=== PATIENT | female | born 1990 | race Caucasian/White ===

== ENCOUNTER 2022-06-15 15:36 | Emergency (ER) | payer OTHER, SELFPAY ==
--- NOTE | 2022-06-15 16:10 | EXP.UTC ---
Discharge Plan Disposition Patient Disposition: Home, Self-Care Condition: Good Prescriptions Prescriptions: New amoxicillin 875 mg tablet 875 mg PO BID 10 Days Qty: 20 0RF No Action pantoprazole 40 mg tablet,delayed release (DR/EC) 40 mg PO DAILY Label Comments: TAKE ONE TABLET BY MOUTH ONCE A DAY Referrals Follow up/Referrals: Jennifer Garnett PA [Primary Care Provider] - See instructions Activity Restrictions/Add. Instructions Additional Instructions/Restrictions: Take medication as prescribed. Increase fluids and rest. Use Flonase daily. Follow up with PCP if symptoms persist or worsen. Clinical Impressions Clinical Impression: Otitis media Discharge ED Provider: Taylor Roy [facility] HPI General Stated complaint: earache,cough,CHAUDHRY Time Seen by Provider: 06/15/22 16:11 History of Present Illness Provider Complaint: Pt relates that her right ear started hurting a couple of days ago and then yesterday she states she would become dizzy with head movement. She further relates that her throat has been scratching and feel like she has drainage going down the back of her throat. She denies taking anything for her symptoms. Related Data Home Medications Medication Instructions Recorded Confirmed pantoprazole 40 mg tablet,delayed 40 mg PO DAILY GERD 06/15/22 06/15/22 release Previous Rx's Medication Instructions Recorded amoxicillin 875 mg tablet 875 mg PO BID 10 days #20 tabs 06/15/22 Allergies Allergy/AdvReac Type Severity Reaction Status Date / Time No Known Allergies Allergy Verified 06/15/22 16:26 [facility] Medical History (Updated 06/15/22 @ 16:52 by Taylor Roy APRN) History of gastroesophageal reflux (GERD) Migraine Surgical History (Updated 06/15/22 @ 16:26 by Vilma Novak RN) History of section Social History (Updated 06/15/22 @ 16:26 by Vilma Novak RN) Smoking Status: Current every day smoker alcohol intake: current current occupational status: other Travel in the last 8 weeks: None ROS Obtained: Yes All systems reviewed & no additional complaints except as documented Constitutional Constitutional: Reports system reviewed and no additional complaints, except as documented ENT Ears, Nose, Mouth, and Throat: Reports dizziness, Reports otalgia and Reports post nasal drip Cardiovascular Cardiovascular: Reports system reviewed and no additional complaints, except as documented Respiratory Respiratory: Reports system reviewed and no additional complaints, except as documented and Reports cough Comments: reports occasional dry cough Gastrointestinal Gastrointestingal: Reports system reviewed and no additional complaints, except as documented Musculoskeletal Musculoskeletal: Reports system reviewed and no additional complaints, except as documented Integumentary/Breasts Skin/Breast: Reports system reviewed and no additional complaints, except as documented Neurologic Neurologic: Reports dizziness Physical Exam General General appearance: alert and in no apparent distress Head Head exam: atraumatic Eye Eye exam: Present normal appearance ENT ENT exam: Present other Expanded ENT Exam External ear exam: Present normal external inspection TM/Canal exam: Right TM: erythema and bulging and Bilateral TM: effusion Nasal speculum exam: Bilateral: normal Mouth exam: Present normal external inspection Teeth exam: Present normal inspection Throat exam: Present other Comment: post nasal drainage Neck Neck exam: Present normal inspection Chest Chest inspection: Present symmetric chest wall rise Respiratory Respiratory exam: Present normal lung sounds bilaterally; Absent respiratory distress Cardiovascular Cardiovascular exam: Present regular rate and normal rhythm Abdominal Exam Abdominal exam: Present soft Neurological Exam Neurological exam: Present alert and oriented X3 Skin Skin exam: Present warm,
[2022-06-15 16:15] VITALS: BP 144/71; PULSE 91; RESP 18; TEMP 36.9; O2SAT 99; BMI 37.3
[2022-06-15 16:54] VITALS: BP 144/71; PULSE 91; RESP 18; TEMP 36.9; O2SAT 99
== END 2022-06-15 17:05 | disposition home or self-care (01) ==
PROVIDERS: Emergency Provider Nurse Practitioner Family; PCP Physician Assistant
DX: H66.91 Otitis media, unspecified, right ear (principal)
CPT/HCPCS: 99212; G0463

== ENCOUNTER → 2022-09-27 15:50 | Outpatient (CLI) | payer OTHER, SELFPAY ==
[2022-09-27 16:56] LABS: Basophils % 0.4 % (0.1-2.0); Eosinophils # 0.1 K/mm3 (0.0-0.4); Eosinophils % 1.4 % (0.1-12.0); Hematocrit 39.8 % (37.0-47.0); Lymphocytes # 2.3 K/mm3 (0.7-4.5); Lymphocytes % 22.4 % (10-50); Mean Corpuscular HGB Conc 32.8 g/dL (31.8-35.4); Mean Corpuscular Hemoglobin 29.7 pg (27.0-31.2); Mean Corpuscular Volume 90.6 fl (81-99); Mean Platelet Volume 8.4 fl (7.4-10.4); Monocytes # 0.4 K/mm3 (0.1-1.0); Monocytes % 3.3 % (1.7-9.3); Neutrophils # 7.6 K/mm3 (1.8-7.8); Neutrophils % 72.5 % (37.0-80.0); Platelet Count 306 K/mm3 (142-424); Red Blood Count 4.39 M/mm3 (4.20-5.40); Red Cell Distribution Width 13.3 % (11.5-17.5); White Blood Count 10.5 K/mm3 (4.8-10.8)
[2022-09-29 11:41] LABS: Rapid Plasma Reagin Ab Titer Non Reactive (NonRea<1:1); Rubella Antibodies, IgG 3.22 index (Immune >0.99)
[2022-10-14 20:26] LABS: HIV Screen 4th Generation wRfx NON REACTIVE; Hepatitis B Surface Antigen NEGATIVE; Hepatitis C Antibody <0.1
== END ==
LOC: LAB 15:52
PROVIDERS: PCP Physician Assistant; Visit Provider Obstetrics & Gynecology
DX: Z34.90 Encounter for supervision of normal pregnancy, unspecified, unspecified trimester (principal)
CPT/HCPCS: 36415; 85025; 86592; 86703; 86762; 86850; 87340; 87380; G0432

== ENCOUNTER → 2022-12-25 14:06 | Outpatient (CLI) | payer OTHER, SELFPAY ==
--- NOTE | 2022-12-25 14:16 | US_ITS ---
FINAL REPORT CLINICAL HISTORY: 20 week anatomy scan FINDINGS: The exam is technically difficult secondary to maternal obesity. There is a single live intrauterine gestation. Presentation is cephalic. The cervix is closed and measures 4.3 cm. Placenta is posterior, grade 1. movement is noted. Cardiac activity is measured at 135 beats per minute. Three-vessel cord with satisfactory umbilical cord insertion. Four-chamber heart is noted. brain and ventricles are unremarkable. Chest and diaphragm are unremarkable. ABDOMEN: Both kidneys are unremarkable. Stomach is unremarkable. SPINE: No anomalies identified. Both arms and legs noted. AMNIOTIC FLUID: Appropriate amount. MEASUREMENTS: ULTRASOUND AGE: 22 weeks 2 days. GESTATION AGE: 23 weeks 0 days. ESTIMATED WEIGHT: 495 g GROWTH PERCENTILE: 16% LMP percentile BPD: 5.3 cm corresponding with 22 weeks 1 days. OFD: 7.0 cm corresponding with 22 weeks 5 days. HC: 19.6 cm corresponding with 21 weeks 6 days. AC: 17.3 cm corresponding with 22 weeks 2 days. FL: 3.9 cm corresponding with 22 weeks 5 days. CEREBELLUM: 2.4 cm corresponding with 23 weeks 5 days. HUMERUS: 3.7 cm corresponding with 22 weeks 6 days. HC/AC: 1.13 CI: 75% FL/BPD: 74% FL/AC: 23% IMPRESSION: Single living IUP with an ultrasound age of 22 weeks 2 days. No gross anomalies noted. Reviewed, Interpreted and Dictated by Nhan Solares III, MD Transcribed by Rosie Martinez Authenticated and . [facility]
== END ==
PROVIDERS: PCP Physician Assistant; Visit Provider Obstetrics & Gynecology
DX: Z34.90 Encounter for supervision of normal pregnancy, unspecified, unspecified trimester (principal); Z3A.20 20 weeks gestation of pregnancy
CPT/HCPCS: 76811

== ENCOUNTER → 2023-02-07 12:38 | Outpatient (CLI) | payer OTHER, SELFPAY ==
[2023-02-07 13:13] LABS: Glucose,Fasting 86 mg/dl (74-100)
[2023-02-07 15:36] LABS: Glucose 1 Hour 141 mg/dL (74-100)
== END ==
PROVIDERS: PCP Physician Assistant; Visit Provider Obstetrics & Gynecology
DX: Z34.90 Encounter for supervision of normal pregnancy, unspecified, unspecified trimester (principal); Z3A.29 29 weeks gestation of pregnancy
CPT/HCPCS: 36415; 82951

== ENCOUNTER → 2023-02-21 08:55 | Outpatient (CLI) | payer OTHER, SELFPAY ==
[2023-02-21 10:32] LABS: Basophils % 0.2 % (0.1-2.0); Eosinophils # 0.1 K/mm3 (0.0-0.4); Eosinophils % 1.2 % (0.1-12.0); Hemoglobin 11.3 g/dL (12.2-16.2); Lymphocytes # 2.6 K/mm3 (0.7-4.5); Lymphocytes % 27.1 % (10-50); Mean Corpuscular HGB Conc 33.1 g/dL (31.8-35.4); Mean Corpuscular Hemoglobin 30.2 pg (27.0-31.2); Mean Corpuscular Volume 91.1 fl (81-99); Mean Platelet Volume 9.7 fl (7.4-10.4); Monocytes # 0.5 K/mm3 (0.1-1.0); Monocytes % 5.6 % (1.7-9.3); Neutrophils # 6.3 K/mm3 (1.8-7.8); Neutrophils % 65.9 % (37.0-80.0); Platelet Count 293 K/mm3 (142-424); Red Blood Count 3.73 M/mm3 (4.20-5.40); Red Cell Distribution Width 12.8 % (11.5-17.5); White Blood Count 9.5 K/mm3 (4.8-10.8)
[2023-02-21 10:52] LABS: Alanine Aminotransferase 29 U/L (12-78); Albumin Level 3.4 g/dl (3.5-5.0); Alkaline Phosphatase 109 U/L (38-126); Aspartate Amino Transferase 37 U/L (14-36); Bilirubin,Indirect 0.3 mg/dL (0.0-0.9); Bilirubin,Total 0.3 mg/dl (0.2-1.3); Bilirubin,Unconjugated 0.4 mg/dL (0.0-1.1); Blood Urea Nitrogen 9 mg/dl (7-17); Calcium 8.9 mg/dl (8.4-10.2); Carbon Dioxide 24 mmol/L (22.0-30.0); Chloride 97 mmol/L (98-107); Chol/HDL Ratio 4.5 (1-3.5); Cholesterol 288 mg/dl (140-200); Estimated Glomerular Filt Rate 184 ml/min (>60); GFR (African American) 222 ML/MIN (>60); Glucose 89 mg/dl (74-100); HDL Cholesterol 64 mg/dl (40-60); Sodium 134 mmol/L (136-145); Total Protein,Serum 6.1 g/dl (6.3-8.2); Triglycerides 328 mg/dl (30-150); VLDL Cholesterol 66 mg/dL (0-40)
[2023-02-21 11:03] LABS: Direct LDL Cholesterol 153.03 mg/dL (100-129)
[2023-02-21 11:09] LABS: Free T4 (Free Thyroxine) 0.65 ng/dl (0.78-2.19)
[2023-02-21 11:24] LABS: Thyroid Stimulating Hormone 1.88 uIU/mL (0.465-4.68)
== END ==
LOC: LAB 08:56
PROVIDERS: PCP Physician Assistant; Visit Provider Nurse Practitioner
DX: R06.00 Dyspnea, unspecified (principal); R07.89 Other chest pain; R00.0 Tachycardia, unspecified; I34.0 Nonrheumatic mitral (valve) insufficiency; I11.9 Hypertensive heart disease without heart failure; R94.31 Abnormal electrocardiogram [ECG] [EKG]; E11.9 Type 2 diabetes mellitus without complications; I63.9 Cerebral infarction, unspecified
CPT/HCPCS: 36415; 80048; 80061; 80076; 84439; 84443; 85025; 93270

== ENCOUNTER 2023-03-06 20:09 | Observation (INO) | payer OTHER, SELFPAY ==
[2023-03-06 16:42] VITALS: BMI 40.5
[2023-03-06 18:08] VITALS: BP 133/85; PULSE 95; RESP 16; TEMP 36.5; O2SAT 98; BMI 40.5
[2023-03-06 18:24] LABS: Microscopic, Urine URINE MICROSCOPIC (MICROSCOPIC)
[2023-03-06 18:28] LABS: Basophils % 0.3 % (0.1-2.0); Eosinophils # 0.1 K/mm3 (0.0-0.4); Eosinophils % 0.8 % (0.1-12.0); Hematocrit 33.9 % (37.0-47.0); Lymphocytes # 2.4 K/mm3 (0.7-4.5); Lymphocytes % 24.2 % (10-50); Mean Corpuscular HGB Conc 32.5 g/dL (31.8-35.4); Mean Corpuscular Hemoglobin 29.2 pg (27.0-31.2); Mean Corpuscular Volume 89.7 fl (81-99); Mean Platelet Volume 8.8 fl (7.4-10.4); Monocytes # 0.4 K/mm3 (0.1-1.0); Monocytes % 4.4 % (1.7-9.3); Neutrophils # 6.8 K/mm3 (1.8-7.8); Neutrophils % 70.3 % (37.0-80.0); Platelet Count 259 K/mm3 (142-424); Red Blood Count 3.78 M/mm3 (4.20-5.40); Red Cell Distribution Width 12.8 % (11.5-17.5); White Blood Count 9.7 K/mm3 (4.8-10.8)
[2023-03-06 18:38] LABS: Alanine Aminotransferase 27 U/L (12-78); Anion Gap 15.8 mEq/L (5-15); Aspartate Amino Transferase 36 U/L (14-36); Blood Urea Nitrogen 5 mg/dl (7-17); Calcium 8.9 mg/dl (8.4-10.2); Carbon Dioxide 22 mmol/L (22.0-30.0); Chloride 101 mmol/L (98-107); Creatinine Clearance Estimated 338 mL/min (50-200); Estimated Glomerular Filt Rate 184 ml/min (>60); GFR (African American) 222 ML/MIN (>60); Glucose 72 mg/dl (74-100); Potassium 3.8 mmoL/L (3.5-5.1); Sodium 135 mmol/L (136-145); Uric Acid 3.5 mg/dl (2.5-6.2)
[2023-03-06 18:42] LABS: Appearance,Urine CLEAR (Clear); Bilirubin,Urine Negative (Negative); Blood, Urine Negative (Negative); Color,Urine YELLOW (Yellow); Glucose,Urine (UA) Negative (Negative); Ketones,Urine 1+ (Negative); Leukocyte Esterase,Urine Negative (Negative); Nitrate,Urine Negative (Negative); PH,Urine 5.5 (5.0-8.5); Protein,Urine Negative (Negative); Urobilinogen,Urine 0.2 EU/dl (0.2)
[2023-03-06 18:42] LABS: Fibrinogen 504 mg/dL (229.9-363.5); INR 0.88 (0.9-1.1); Prothrombin Time 9.6 seconds (10.1-12.5)
[2023-03-06 18:49] LABS: WBC,Urine Occasional #/hpf (0-3)
[2023-03-06 18:51] LABS: D-Dimer 1.83 ug/mL (0.0-0.5)
[2023-03-06 18:54] LABS: Amphetamine/Metha Screen,Urine Negative ng/ml (<1000); Benzodiazepines Screen,Urine Negative ng/ml (<200)
[2023-03-06 18:55] LABS: Barbiturates Screen,Urine Negative ng/ml (<200)
[2023-03-06 18:56] LABS: Cannabinoid Screen,Urine Negative ng/ml (<50); Methadone Screen,Urine Negative ng/ml (<300)
[2023-03-06 18:57] LABS: Cocaine Screen,Urine Negative ng/ml (<300); Phencyclidine Screen,Urine Negative ng/ml (<25)
[2023-03-06 18:58] LABS: Opiate Screen,Urine Negative ng/ml (<300)
[2023-03-06 20:48] LABS: Coronavirus 19, PCR Not Detected (NotDetected); Influenza A, PCR Not Detected (NotDetected); Influenza B, PCR Not Detected (NotDetected)
[2023-03-07 03:44] VITALS: BP 138/76; PULSE 93; RESP 18; TEMP 36.7; O2SAT 97
[2023-03-07 08:00] VITALS: BP 135/70; PULSE 82; RESP 18; TEMP 36.6; O2SAT 100
--- NOTE | 2023-03-07 08:11 | HMH.PHAINT1 ---
Pharmacy Intervention Comments: MEDICATION RECONCILIATION COMPLETED ON PATIENT USING EXTERNAL FILL HISTORY FROM PHARMACY. -LEXI JANG, KEYANNAD
--- NOTE | 2023-03-07 10:46 | EXP.HPDC ---
General Admission date:: 03/06/23 Discharge date: 03/07/23 *Admission Date: 03/06/23 *Chief complaint: hypertension *History of present illness: 32 yo Admitted for observation at 33 10/19 after routine appointment in office with elevated BP 150s/100s BP was significantly lower in OB triage 130-140/70-80, but she was having regular painful contractions on the tocometer Cervical exam was and she was admitted for hydration, tocolysis and monitoring [facility] Disclaimer: The information contained in this section may have been updated after the patient was seen, as this information can be updated by other users. Medical History History of gastroesophageal reflux (GERD) Migraine Surgical History History of section Family History Other Stroke Social History Smoking Status: Current every day smoker alcohol intake: current current occupational status: employed Travel in the last 8 weeks: None Review of Systems Constitutional Constitutional: Reports system reviewed and no additional complaints, except as documented and Denies headache(s) ENT Ears, Nose, Mouth, and Throat: Denies headache(s) *Genitourinary Genitourinary: Denies abnormal vaginal bleeding Comments: + contractions *Neurologic Neurologic: Denies headache(s) and Denies other visual disturbances Exam Data for Last 24 hours Vital signs and Labs for Last 24 Hours: Temp Pulse Resp BP Pulse Ox 97.8 F 82 18 135/70 100 03/07/23 08:00 03/07/23 08:00 03/07/23 08:00 03/07/23 08:00 03/07/23 08:00 Laboratory Results - last 24 hr 03/06/23 18:09: Urine Color Yellow, Urine Appearance Clear, Urine pH 5.5, Ur Specific Hamilton 1.010, Urine Protein Negative, Urine Glucose (UA) Negative, Urine Ketones 1+, Urine Blood Negative, Urine Nitrate Negative, Urine Bilirubin Negative, Urine Urobilinogen 0.2, Ur Leukocyte Esterase Negative, Urine RBC None, Urine WBC Occasional, Ur Squamous Epith Cells 3-5, Urine Bacteria None 03/06/23 18:09: Urine Opiates Screen Negative, Urine Methadone Screen Negative, Ur Barbituates Screen Negative, Ur Phencyclidine Scrn Negative, Ur Amphetamines Screen Negative, U Benzodiazepines Scrn Negative, Urine Cocaine Screen Negative, U Marijuana (THC) Screen Negative 03/06/23 18:19: WBC 9.7, RBC 3.78 L, Hgb 11.0 L, Hct 33.9 L, MCV 89.7, MCH 29.2, MCHC 32.5, RDW 12.8, Plt Count 259, MPV 8.8, Neut % (Auto) 70.3, Lymph % (Auto) 24.2, Pope % (Auto) 4.4, Eos % (Auto) 0.8, Baso % (Auto) 0.3, Neut # (Auto) 6.8, Lymph # (Auto) 2.4, Pope # (Auto) 0.4, Eos # (Auto) 0.1, Baso # (Auto) 0.0 03/06/23 18:19: PT 9.6 L, INR 0.88 L, APTT 23.0, Fibrinogen 504 H 03/06/23 18:19: D-Dimer 1.83 H, Sodium 135 L, Potassium 3.8, Chloride 101, Carbon Dioxide 22, Anion Gap 15.8 H, BUN 5 L, Creatinine 0.40 L, Estimated Creat Clear 338 H, Estimated GFR 184, Est GFR ( Amer) 222, Glucose 72 L, Uric Acid 3.5, Calcium 8.9, AST 36, ALT 27 03/06/23 20:31: SARS-CoV-2 (PCR) Not detected, Influenza A Untype (PCR) Not detected, Influenza Type B (PCR) Not detected I & O for Last 24 hours: Intake & Output 03/04/23 03/05/23 03/06/23 03/07/23 11:59 11:59 11:59 11:59 Weight 236 lb Constitutional Constitutional: no acute distress *Routine HEENT Exam Head: Present normocephalic Eye: Absent conjunctival icterus or scleral injection ENT: Present mucous membranes moist *Routine Neck Exam Neck: Present supple *Routine Respiratory Exam Respiratory: Present CTA bilaterally; Absent respiratory distress *Routine Cardiovascular Exam Cardiovascular: Present RRR *Routine Abdominal Exam Abdominal: Present soft; Absent tenderness or distended *Routine Rectal Exam Rectal:: deferred *Routine Genitalia Exam Genitalia:: normal female
== END 2023-03-07 14:15 | disposition home or self-care (01) ==
LOC: OBOUT 20:11 → OB 20:11
PROVIDERS: Admitting Provider Obstetrics & Gynecology; PCP Physician Assistant; Visit Provider Obstetrics & Gynecology
DX: O60.03 Preterm labor without delivery, third trimester (principal); Z3A.33 33 weeks gestation of pregnancy; O16.4 Unspecified maternal hypertension, complicating childbirth; O99.214 Obesity complicating childbirth; O99.334 Smoking (tobacco) complicating childbirth
CPT/HCPCS: 36415; 59025; 80048; 80305; 81001; 84450; 84460; 84550; 85025; 85378; 85384; 85610; 85730; 87636; 96372; C9803; G0378; U0003; U0005

== ENCOUNTER → 2023-03-11 12:32 | Outpatient (CLI) | payer OTHER, SELFPAY ==
[2023-03-17 10:14] LABS: Albumin, U 29.4; Alpha-1-Globulin, U 7.3; Alpha-2-Globulin, U 23.7; Beta Globulin, U 26.3; Gamma Globulin, U 13.2; M-Spike, % NOT OBSERVED; M-Spike, mg/24 hr NOT OBSERVED; Prot,24hr calculated 458; Protein,Total,Urine 30.5
== END ==
PROVIDERS: PCP Physician Assistant; Visit Provider Obstetrics & Gynecology
DX: Z34.90 Encounter for supervision of normal pregnancy, unspecified, unspecified trimester (principal); Z3A.33 33 weeks gestation of pregnancy
CPT/HCPCS: 84156; 84166

== ENCOUNTER → 2023-03-14 15:50 | Outpatient (CLI) | payer OTHER, SELFPAY ==
--- NOTE | 2023-03-14 15:51 | US_ITS ---
PROCEDURE: US OB BIOPHYSICAL PROFILE CLINICAL INDICATION: hypertension affecting , LGA TECHNIQUE: Multiple images were obtained of the uterus. Technically difficult exam due to the patient's body habitus. FINDINGS: The following parameters are obtained: From her established due date she is 34 weeks and 2 days. Average ultrasound age is Average 34weeks 2days Estimated due date by ultrasound is 04/23/2023. Estimated weight is 2,647g 5 pounds 13 ounces, 75th percentile. BPD: 8.33 cm-33weeks 4days OFD: 10.8 cm -33weeks 4days HC: 30.3cm-33 weeks 5 days AC: 33.7cm-37 weeks 5 days FL: 6.1cm-31 weeks 6 days . HC/AC: 0.9 Cephalic index: 0.77 FL/BPD: 0.73 FL/AC: 0.18 heart rate: 139bpm bpm Amniotic fluid index: 24.14cm Qualitative AFV: 2 breathing movements: 2 Gross body movements: 2 Tone: 2 Biophysical profile score: 8 Doppler evaluation of the umbilical artery: SD ratio: 2.38 Resistive index: 0.58 No obvious anomalies evident. Placenta: Posterior grade 2 Cervix: 3.4 centimeters IMPRESSION: 1. Viable fetus in the cephalic presentation with a posterior placenta grade 2. 2. The growth is 75th percentile. 3. The abdominal circumference shows accelerated growth and is 3 weeks ahead. 4. The femur length measures 2 weeks behind and this may erroneously reflect a lower weight and percentile than the fetus actually weighs. 5. The amniotic fluid index is increased and measures 24.14 centimeters. 6. Biophysical profile is 8/8 with good breathing movement seen. 7. SD ratio is normal at 2.38. Dictated by: Herber Fernández MD 03/15/2023 12:30 Herber Fernández MD in OV 03/15/2023 12:30
== END ==
LOC: RAD 15:51
PROVIDERS: PCP Obstetrics & Gynecology; Visit Provider Obstetrics & Gynecology
DX: O16.9 Unspecified maternal hypertension, unspecified trimester (principal); O36.60X0 Maternal care for excessive fetal growth, unspecified trimester, not applicable or unspecified
CPT/HCPCS: 76811; 76819; 76820

== ENCOUNTER 2023-03-24 16:48 | Emergency (ER) | payer OTHER, SELFPAY ==
--- NOTE | 2023-03-24 16:39 | ECG_ITS ---
APPROVED REPORT Exam: Resting ECG HR:103 bpm ECG Measurements Heart Rate 103 AXES ME 129 P 47 QRSd 92 QRS 53 QT 324 T -4 QTc 384 Conclusion SINUS TACHYCARDIA MINIMAL ST DEPRESSION [0.025+ mV ST DEPRESSION] ABNORMAL RHYTHM ECG INTERPRETATION BASED ON A DEFAULT AGE OF 40 YEARS UNCONFIRMED REPORT Electronically signed by : Kyree Carreon MD 03/25/2023 20:08:21
[2023-03-24 16:50] VITALS: BP 161/85; PULSE 102; RESP 20; TEMP 37; O2SAT 99; BMI 41.5
--- NOTE | 2023-03-24 16:59 | PC.NURSE ---
FHT'S 146-155 WTIH DOPPLER, PT REPORTS +FM
--- NOTE | 2023-03-24 17:07 | PC.NURSE ---
PT ASSISTED TO BR, NO NEEDS AT THIS TIME
--- NOTE | 2023-03-24 17:25 | PC.NURSE ---
rounded on pt, pt. has no complaints at this time.
[2023-03-24 17:30] VITALS: BP 134/95; PULSE 90; RESP 22; O2SAT 97
[2023-03-24 17:35] LABS: Basophils % 0.3 % (0.1-2.0); Eosinophils # 0.1 K/mm3 (0.0-0.4); Eosinophils % 0.6 % (0.1-12.0); Hematocrit 32.4 % (37.0-47.0); Hemoglobin 10.5 g/dL (12.2-16.2); Lymphocytes # 2.3 K/mm3 (0.7-4.5); Lymphocytes % 22.6 % (10-50); Mean Corpuscular HGB Conc 32.4 g/dL (31.8-35.4); Mean Corpuscular Hemoglobin 28.5 pg (27.0-31.2); Mean Corpuscular Volume 87.8 fl (81-99); Mean Platelet Volume 8.6 fl (7.4-10.4); Monocytes # 0.5 K/mm3 (0.1-1.0); Monocytes % 4.5 % (1.7-9.3); Neutrophils # 7.4 K/mm3 (1.8-7.8); Platelet Count 270 K/mm3 (142-424); Red Blood Count 3.69 M/mm3 (4.20-5.40); Red Cell Distribution Width 13.4 % (11.5-17.5); White Blood Count 10.3 K/mm3 (4.8-10.8)
[2023-03-24 17:37] LABS: Chloride 102 mmol/L (98-107); Potassium 3.9 mmoL/L (3.5-5.1); Sodium 135 mmol/L (136-145)
[2023-03-24 17:40] LABS: Alanine Aminotransferase 39 U/L (12-78); Albumin Level 3.6 g/dl (3.5-5.0); Albumin/Globulin Ratio 1.1 (1.1-1.8); Alkaline Phosphatase 144 U/L (38-126); Anion Gap 12.9 mEq/L (5-15); Aspartate Amino Transferase 45 U/L (14-36); Bilirubin,Total 0.2 mg/dl (0.2-1.3); Blood Urea Nitrogen 7 mg/dl (7-17); Carbon Dioxide 24 mmol/L (22.0-30.0); Creatinine Clearance Estimated 138 mL/min (50-200); Estimated Glomerular Filt Rate 142 ml/min (>60); GFR (African American) 172 ML/MIN (>60); Globulin 3.3 g/dL (1.3-3.2); Total Protein,Serum 6.9 g/dl (6.3-8.2)
[2023-03-24 17:41] LABS: Calcium 9.7 mg/dl (8.4-10.2); Glucose 77 mg/dl (74-100)
[2023-03-24 17:53] LABS: Troponin I < 0.01 ng/ml (0.00-0.034)
[2023-03-24 18:00] VITALS: BP 153/96; PULSE 90; RESP 24; O2SAT 97
--- NOTE | 2023-03-24 18:01 | PC.NURSE ---
ED MD AT BEDSIDE
[2023-03-24 18:30] VITALS: BP 151/89; PULSE 88; RESP 22; O2SAT 98
--- NOTE | 2023-03-24 19:04 | PC.NURSE ---
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
--- NOTE | 2023-03-24 19:09 | HMH.EDGENADL ---
Discharge Plan Disposition Patient Disposition: Xfer Other Condition: Fair Prescriptions Prescriptions: No Action prenat.vits,savannah,fmz-ileq-pyosa Tablet 1 tab PO DAILY ondansetron 8 mg tablet,disintegrating 8 mg PO Q12HP PRN (Reason: Nausea And Vomiting) omeprazole 20 mg capsule,delayed release(DR/EC) 20 mg PO DAILY nifedipine 10 mg Capsule 20 mg PO Q6H Qty: 160 0RF Referrals Follow up/Referrals: Jennifer Garnett PA [Primary Care Provider] - See instructions Clinical Impressions Clinical Impression: induced hypertension, Chest pain Discharge ED Provider: Dominick Lim General Adult HPI General Chief complaint: Chest Pain Stated complaint: CP Time Seen by Provider: 03/24/23 19:14 Mode of Arrival: Wheelchair Source of Information: Patient Limitations: No Limitations Description of Symptoms (Recalled from ER Triage Doc. by RN): PT 36 WEEKS GESTATION WITH C/O UPPER BACK PAIN, LEFT SIDED CHEST PAIN THAT RADIATES TO LEFT ARM, STARTED ABOUT 1500 TODAY. REPORTS PAIN CONSTANT. RECENT HX OF ELEVATED HR AND HAD ECHO SCHEDULED History of Present Illness HPI narrative: This is a 32-year-old female approximately 36 weeks who comes in with an episode of sharp left-sided chest pain that goes to her left shoulder and upper back that began at 1500 hrs. today. Patient also came in with elevated heart rate. Patient stated that she is scheduled to have an outpatient echo done in the near future. Patient denies shortness of breath nausea vomiting or diaphoresis. There is no upon arrival patient did have an elevated blood pressure. Patient denies any vaginal bleeding or discharge. Patient denies any lower abdominal cramping. Related Data Home Medications Medication Instructions Recorded Confirmed prenat.vits,savannah,fit-xrqn-ddvsk 1 tab PO DAILY Supplement 09/27/22 03/21/23 omeprazole 20 mg capsule,delayed 20 mg PO DAILY Acid reflux 03/07/23 03/21/23 release ondansetron 8 mg disintegrating 8 mg PO Q12HP PRN Nausea And 03/07/23 03/21/23 tablet Vomiting Previous Rx's Medication Instructions Recorded nifedipine 10 mg capsule 20 mg PO Q6H #160 caps 03/07/23 Allergies Allergy/AdvReac Type Severity Reaction Status Date / Time No Known Allergies Allergy Verified 03/21/23 10:42 [facility] Disclaimer: The information contained in this section may have been updated after the patient was seen, as this information can be updated by other users. Medical History (Updated 03/24/23 @ 19:13 by Dominick Lim MD) History of gastroesophageal reflux (GERD) History of placenta abruption Migraine contractions Surgical History History of section Family History Other Stroke Social History Smoking Status: Current every day smoker alcohol intake: current current occupational status: employed Travel in the last 8 weeks: None ROS Obtained: Yes All systems reviewed & no additional complaints except as documented Skin no rash or lesions HEENT no runny nose sore throat Pulmonary no cough or shortness of breath Cardiovascular see HPI GI no abdominal pain nausea or vomiting no dysuria pyuria hematuria Musculoskeletal no neck or back pain Endocrine no polydipsia polyuria or polyphasia Psych no SI or HI The rest of the systems were reviewed and found to be negative Physical Exam Narrative Physical exam: Skin: Warm and dry HEENT: Normocephalic atraumatic extract muscles are intact pupils are equal and reactive to light Neck: Supple nontender Lungs: Clear to auscultation Heart: Regular rate and rhythm Abdomen: NABS soft nontender Extremities: No clubbing cyanosis or edema Neurologic: No unilateral weakness or numbness Lymphatic: No cervical or inguinal adenopathy Musculoskeletal: No
--- NOTE | 2023-03-24 19:09 | PC.NURSE ---
REPORT GIVEN TO AKBAR KATHLEEN
--- NOTE | 2023-03-24 19:11 | PC.NURSE ---
TREAD BUILDER NOTIFIED FOR ADMISSION
--- NOTE | 2023-03-24 19:14 | PC.NURSE ---
COVID swab obtained and sent to lab
[2023-03-24 19:20] LABS: Coronavirus 19, PCR Not Detected (NotDetected); Influenza A, PCR Not Detected (NotDetected); Influenza B, PCR Not Detected (NotDetected)
[2023-03-24 19:25] VITALS: BP 147/87; PULSE 87; RESP 22; TEMP 37; O2SAT 98
[2023-03-24 19:56] LABS: Microscopic, Urine URINE MICROSCOPIC (MICROSCOPIC)
[2023-03-24 19:58] LABS: Appearance,Urine CLEAR (Clear); Bilirubin,Urine Negative (Negative); Blood, Urine Negative (Negative); Color,Urine YELLOW (Yellow); Glucose,Urine (UA) Negative (Negative); Ketones,Urine 1+ (Negative); Leukocyte Esterase,Urine Negative (Negative); Nitrate,Urine Negative (Negative); PH,Urine 6.5 (5.0-8.5); Protein,Urine Negative (Negative); Urobilinogen,Urine 0.2 EU/dl (0.2)
[2023-03-24 20:12] LABS: Bacteria,Urine 2+ /lpf
== END 2023-03-24 19:27 | disposition other institution (70) ==
PROVIDERS: Emergency Provider Emergency Medicine; PCP Physician Assistant
DX: O99.413 Diseases of the circulatory system complicating pregnancy, third trimester (principal); O13.3 Gestational [pregnancy-induced] hypertension without significant proteinuria, third trimester; R07.9 Chest pain, unspecified; O99.333 Smoking (tobacco) complicating pregnancy, third trimester; F17.200 Nicotine dependence, unspecified, uncomplicated; R00.0 Tachycardia, unspecified; Z3A.36 36 weeks gestation of pregnancy
CPT/HCPCS: 80053; 81001; 84484; 85025; 87086; 87636; 93005; 99285; C9803; U0003; U0005

== ENCOUNTER 2023-03-24 20:18 | Observation (INO) | payer OTHER, SELFPAY ==
[2023-03-24] VITALS (9 sets, daily range): BP systolic 120–164; BP diastolic 70–89; PULSE 92–105; RESP 19; O2SAT 100; BMI 41.1
[2023-03-24 20:28] LABS: Uric Acid 3.7 mg/dl (2.5-6.2)
[2023-03-24 20:30] LABS: Amphetamine/Metha Screen,Urine Negative ng/ml (<1000); Barbiturates Screen,Urine Negative ng/ml (<200)
[2023-03-24 20:31] LABS: Benzodiazepines Screen,Urine Negative ng/ml (<200)
[2023-03-24 20:32] LABS: Cannabinoid Screen,Urine Negative ng/ml (<50); Cocaine Screen,Urine Negative ng/ml (<300)
[2023-03-24 20:33] LABS: Methadone Screen,Urine Negative ng/ml (<300)
[2023-03-24 20:34] LABS: Opiate Screen,Urine Negative ng/ml (<300); Phencyclidine Screen,Urine Negative ng/ml (<25)
[2023-03-25] VITALS (15 sets, daily range): BP systolic 96–138; BP diastolic 54–91; PULSE 80–100; RESP 18; TEMP 36.5; O2SAT 99
--- NOTE | 2023-03-25 00:36 | ECG_ITS ---
APPROVED REPORT Exam: Resting ECG HR:86 bpm ECG Measurements Heart Rate 86 AXES TN 132 P 58 QRSd 90 QRS 72 QT 350 T 46 QTc 394 Conclusion SINUS RHYTHM NORMAL ECG UNCONFIRMED REPORT Electronically signed by : Kyree Carreon MD 03/25/2023 20:06:18
[2023-03-25 01:17] LABS: Troponin I < 0.01 ng/ml (0.00-0.034)
--- NOTE | 2023-03-25 08:01 | HMH.PHAINT1 ---
Pharmacy Intervention Comments: MEDICATION RECONCILIATION COMPLETED ON PATIENT USING EXTERNAL FILL HISTORY FROM PHARMACY. -LEXI JANG, KEYANNAD
--- NOTE | 2023-03-25 09:48 | EXP.HP ---
History of Present Illness *Admission Date: 03/24/23 *Reason for visit:: , chest pain, hypertension *History of present illness: She is a 32-year-old female approximately 36 weeks who comes in with an episode of sharp left-sided chest pain that goes to her left shoulder and upper back that began at 1500 hrs. today.? Patient also came in with elevated heart rate.? Patient stated that she is scheduled to have an outpatient echo done in the near future.? Patient denies shortness of breath nausea vomiting or diaphoresis.? In the emergency department the patient did have an elevated blood pressure.? Patient denies any vaginal bleeding or discharge.? Patient denies any lower abdominal cramping. [facility] Disclaimer: The information contained in this section may have been updated after the patient was seen, as this information can be updated by other users. Medical History (Updated 03/25/23 @ 09:51 by Herber Fernández MD) History of gastroesophageal reflux (GERD) History of placenta abruption Migraine contractions Surgical History History of section Family History Stroke Social History Smoking Status: Current every day smoker tobacco type: cigarettes packs per day: 1 years smoked: 15 alcohol intake: never current occupational status: employed Travel in the last 8 weeks: None do you feel safe at home: Yes victim of physical abuse: No victim of emotional abuse: No victim of sexual abuse: No Review of Systems Review of Systems Review of systems:: pertinent systems reviewed and negative unless documented below Meds Home Medications and Allergies Home Medications Medication Instructions Recorded Confirmed Type ondansetron 8 mg disintegrating 8 mg PO Q12HP PRN Nausea And 03/07/23 03/24/23 History tablet Vomiting nifedipine 10 mg capsule 20 mg PO Q6H Hypertension 03/24/23 03/24/23 History pantoprazole 40 mg tablet,delayed 40 mg PO DAILY Acid reflux 03/25/23 03/25/23 History release vits no.124-ferrous fum 1 tab PO DAILY Supplement 03/25/23 03/25/23 History 27 mg iron-folic acid 800 mcg tablet ( Vitamin) New Prescriptions to Start Prescriptions: Allergies Allergy/AdvReac Type Severity Reaction Status Date / Time No Known Allergies Allergy Verified 03/21/23 10:42 Exam Data for Last 24 hours Vital signs and Labs for Last 24 Hours: Temp Pulse Resp BP Pulse Ox 97.7 F 99 H 18 128/66 99 03/25/23 08:41 03/25/23 08:41 03/25/23 08:41 03/25/23 08:41 03/25/23 08:41 Laboratory Results - last 24 hr 03/24/23 17:20: Uric Acid 3.7 03/24/23 18:45: Urine Opiates Screen Negative, Urine Methadone Screen Negative, Ur Barbituates Screen Negative, Ur Phencyclidine Scrn Negative, Ur Amphetamines Screen Negative, U Benzodiazepines Scrn Negative, Urine Cocaine Screen Negative, U Marijuana (THC) Screen Negative 03/25/23 00:45: Troponin I < 0.01 I & O for Last 24 hours: Intake & Output 03/22/23 03/23/23 03/24/23 03/25/23 11:59 11:59 11:59 11:59 Weight 240 lb Constitutional Constitutional: no acute distress *Routine HEENT Exam Head: Present normocephalic Eye: Present EOMI and PERRL ENT: Present mucous membranes moist *Routine Neck Exam Neck: Present supple; Absent lymphadenopathy *Routine Respiratory Exam Respiratory: Present CTA bilaterally *Routine Cardiovascular Exam Cardiovascular: Present RRR *Routine Abdominal Exam Abdominal: Present soft and normoactive bowel sounds; Absent tenderness *Routine Rectal Exam Rectal:: deferred *Routine Genitalia Exam Genitalia:: deferred *Routine Extremities Exam Extremities: Absent cyanosis, clubbing or edema *Routine Skin Exam Skin: Present warm; Absent rash *Routine Neurological Exam Neurological: Present alert and oriented
--- NOTE | 2023-03-25 12:36 | EXP.DC.SUM ---
General Admission date:: 03/24/23 Discharge date: 03/25/23 HPI HPI HPI: She is a 32-year-old female approximately 36 weeks who comes in with an episode of sharp left-sided chest pain that goes to her left shoulder and upper back that began at 1500 hrs. today.? Patient also came in with elevated heart rate.? Patient stated that she is scheduled to have an outpatient echo done in the near future.? Patient denies shortness of breath nausea vomiting or diaphoresis.? In the emergency department the patient did have an elevated blood pressure.? Patient denies any vaginal bleeding or discharge.? Patient denies any lower abdominal cramping. Hospital Course Hospital Course Hospital Course: She was admitted overnight with slightly elevated blood pressure and during the night had chest pain that radiated through her back and left shoulder. EKG at the time was completely normal. She received a GI cocktail and this seemed to help with her discomfort. Her blood pressure has improved with bedrest and it is normal now. She had an echocardiogram that was normal with some small regurg of the tricuspid and mitral valve. This was told by the technologist. We are awaiting the final report. Blood work was all normal. She denies any shortness of breath. Her chest pain has improved and she has had no further severe episodes of chest pain. I have changed her nifedipine to 60 mg XL daily. She is taking labetalol 100 mg twice daily as well. We will restart her Protonix and she has received her first dose today. She will be discharged home this afternoon to follow-up with Dr. Polanco in approximately 3 days time. She will return if she has any further episodes of severe pain or discomfort. Exam Data for Last 24 hours Vital signs and Labs for Last 24 Hours: Temp Pulse Resp BP Pulse Ox 97.7 F 99 H 18 128/66 99 03/25/23 08:41 03/25/23 08:41 03/25/23 08:41 03/25/23 08:41 03/25/23 08:41 Laboratory Results - last 24 hr 03/24/23 17:20: Uric Acid 3.7 03/24/23 18:45: Urine Opiates Screen Negative, Urine Methadone Screen Negative, Ur Barbituates Screen Negative, Ur Phencyclidine Scrn Negative, Ur Amphetamines Screen Negative, U Benzodiazepines Scrn Negative, Urine Cocaine Screen Negative, U Marijuana (THC) Screen Negative 03/25/23 00:45: Troponin I < 0.01 I & O for Last 24 hours: Intake & Output 03/23/23 03/24/23 03/25/23 03/26/23 11:59 11:59 11:59 11:59 Weight 240 lb Constitutional Constitutional: no acute distress *Routine HEENT Exam Head: Present normocephalic *Routine Neck Exam Neck: Present supple *Routine Respiratory Exam Respiratory: Present normal respiratory effort and able to speak in complete sentences; Absent accessory muscle use or respiratory distress *Routine Cardiovascular Exam Cardiovascular: Present RRR *Routine Abdominal Exam Abdominal: Present soft; Absent tenderness or distended Comments: Gravid uterus Results Data Completed and Pending Labs on day of discharge: Labs from last 24 hours 03/25/23 03/24/23 03/24/23 00:45 18:45 17:20 Uric Acid 3.7 Troponin I < 0.01 Urine Opiates Screen Negative Urine Methadone Screen Negative Ur Barbituates Screen Negative Ur Phencyclidine Scrn Negative Ur Amphetamines Screen Negative U Benzodiazepines Scrn Negative Urine Cocaine Screen Negative U Marijuana (THC) Screen Negative DS: Diagnosis Discharge Diagnosis (1) induced hypertension: Status: Acute Code(s): O13.9 - Gestational [-induced] hypertension without significant proteinuria, unspecified trimester (2) Chest pain: Status: Acute Code(s): R07.9 - Chest pain, unspecified (3) Hypertension during in third trimester: Status: Acute Code(s): O16.3 - Unspecified maternal hypertension, third trimester (4) Esophageal spasm: Status: Acute Code(s): K22.4 - Dyskinesia of esophagus (
== END 2023-03-25 13:45 | disposition home or self-care (01) ==
LOC: OBOUT 20:21 → OB 20:21
PROVIDERS: Admitting Provider Nurse Practitioner Obstetrics & Gynecology; PCP Physician Assistant; Visit Provider Nurse Practitioner Obstetrics & Gynecology
DX: O13.3 Gestational [pregnancy-induced] hypertension without significant proteinuria, third trimester (principal); Z3A.36 36 weeks gestation of pregnancy; O99.215 Obesity complicating the puerperium; K22.4 Dyskinesia of esophagus; O99.334 Smoking (tobacco) complicating childbirth; F17.210 Nicotine dependence, cigarettes, uncomplicated; R07.89 Other chest pain; O26.893 Other specified pregnancy related conditions, third trimester
CPT/HCPCS: 36415; 59025; 80305; 84484; 84550; 93005; 93306; G0378

== ENCOUNTER → 2023-03-29 08:59 | Outpatient (CLI) | payer OTHER, SELFPAY | LOC: LAB.DROPOF 09:00 | PROVIDERS: Visit Provider Obstetrics & Gynecology | DX: Z34.93 Encounter for supervision of normal pregnancy, unspecified, third trimester (principal); Z3A.37 37 weeks gestation of pregnancy | CPT/HCPCS: 86403 ==

== ENCOUNTER 2023-04-03 05:00 | Inpatient (IN) | payer OTHER, SELFPAY ==
[2023-04-03] VITALS (19 sets, daily range): BP systolic 120–185; BP diastolic 56–108; PULSE 75–108; RESP 16–20; TEMP 36.6–37.1; O2SAT 97–100; BMI 39.6
[2023-04-03 06:00] LABS: Coronavirus 19, PCR Not Detected (NotDetected); Influenza A, PCR Not Detected (NotDetected); Influenza B, PCR Not Detected (NotDetected); Microscopic, Urine URINE MICROSCOPIC (MICROSCOPIC)
[2023-04-03 06:03] LABS: Basophils % 0.4 % (0.1-2.0); Eosinophils # 0.1 K/mm3 (0.0-0.4); Eosinophils % 0.8 % (0.1-12.0); Hematocrit 31.1 % (37.0-47.0); Hemoglobin 10.1 g/dL (12.2-16.2); Lymphocytes # 2.5 K/mm3 (0.7-4.5); Lymphocytes % 26.4 % (10-50); Mean Corpuscular HGB Conc 32.4 g/dL (31.8-35.4); Mean Corpuscular Hemoglobin 27.6 pg (27.0-31.2); Mean Corpuscular Volume 85.4 fl (81-99); Mean Platelet Volume 9.3 fl (7.4-10.4); Monocytes # 0.5 K/mm3 (0.1-1.0); Monocytes % 4.7 % (1.7-9.3); Neutrophils # 6.4 K/mm3 (1.8-7.8); Neutrophils % 67.8 % (37.0-80.0); Platelet Count 274 K/mm3 (142-424); Red Blood Count 3.65 M/mm3 (4.20-5.40); Red Cell Distribution Width 13.9 % (11.5-17.5); White Blood Count 9.5 K/mm3 (4.8-10.8)
[2023-04-03 06:16] LABS: Chloride 103 mmol/L (98-107)
[2023-04-03 06:17] LABS: Potassium 3.9 mmoL/L (3.5-5.1); Sodium 135 mmol/L (136-145)
[2023-04-03 06:19] LABS: Alanine Aminotransferase 47 U/L (12-78); Alkaline Phosphatase 158 U/L (38-126); Aspartate Amino Transferase 55 U/L (14-36); Bilirubin,Total 0.3 mg/dl (0.2-1.3); Blood Urea Nitrogen 8 mg/dl (7-17); Creatinine Clearance Estimated 265 mL/min (50-200); Estimated Glomerular Filt Rate 142 ml/min (>60); GFR (African American) 172 ML/MIN (>60)
[2023-04-03 06:20] LABS: Albumin Level 3.5 g/dl (3.5-5.0); Anion Gap 12.9 mEq/L (5-15); Calcium 9.1 mg/dl (8.4-10.2); Carbon Dioxide 23 mmol/L (22.0-30.0); Globulin 3.5 g/dL (1.3-3.2); Glucose 88 mg/dl (74-100)
[2023-04-03 06:21] LABS: Appearance,Urine CLEAR (Clear); Blood, Urine Negative (Negative); Color,Urine YELLOW (Yellow); Glucose,Urine (UA) Negative (Negative); Ketones,Urine Negative (Negative); Leukocyte Esterase,Urine TRACE (Negative); Nitrate,Urine Negative (Negative); PH,Urine 6.5 (5.0-8.5); Protein,Urine TRACE (Negative)
[2023-04-03 06:31] LABS: Amphetamine/Metha Screen,Urine Negative ng/ml (<1000)
[2023-04-03 06:32] LABS: Barbiturates Screen,Urine Negative ng/ml (<200)
[2023-04-03 06:33] LABS: Benzodiazepines Screen,Urine Negative ng/ml (<200); Cannabinoid Screen,Urine Negative ng/ml (<50)
[2023-04-03 06:34] LABS: Cocaine Screen,Urine Negative ng/ml (<300)
[2023-04-03 06:35] LABS: Methadone Screen,Urine Negative ng/ml (<300); Opiate Screen,Urine Negative ng/ml (<300)
[2023-04-03 06:36] LABS: Phencyclidine Screen,Urine Negative ng/ml (<25)
[2023-04-03 06:48] LABS: Bilirubin,Urine Negative (Negative)
--- NOTE | 2023-04-03 07:23 | P.PN_ITS ---
[facility] Disclaimer: The information contained in this section may have been updated after the patient was seen, as this information can be updated by other users. Medical History Dyspnea History of gastroesophageal reflux (GERD) History of placenta abruption Migraine contractions Surgical History History of section Family History Other Stroke Social History (Updated 04/03/23 @ 05:36 by Thi Oates RN) Smoking Status: Current every day smoker tobacco type: cigarettes packs per day: 1 years smoked: 15 alcohol intake: never substance use type: denies use current occupational status: employed Travel in the last 8 weeks: None do you feel safe at home: Yes victim of physical abuse: No victim of emotional abuse: No victim of sexual abuse: No [facility] Anesthesia Checklist Patient Identification Patient Identification: Arm Band Structural Data Admitted From: Home Planned Operative Procedure/s: Repeat C/S, BTL Consent for Planned Operative Procedure(s) Verified: Yes Verified Documents: Surgical Consent and History and Physical NPO Status Verified Time NPO: 00:00 Additional verifications Anesthesia Reactions: No Airway Assessment C-Spine Mobility Assessed: Yes TMJ Mobility Assessed: Yes Dentition: Good Dentition Neurological Assessment Level of Consciousness: Awake and Alert Anesthesia Plan Anesthesia Risk discussed: Yes Anesthesia Plan: Verified ASA Class: II Anesthesia Type: Spinal (with Bilateral TAP Block)
[2023-04-03 08:21] LABS: Cord Blood PH 7.38 (7.35-7.45)
--- NOTE | 2023-04-03 09:16 | P.PNANES_ITS ---
[facility] Anesthesia Record Part I Anesthesia Record I Intake, IV Amount: 1,200 Estimated blood loss (mL): 500 Urine output (mL): 100 Blood Products used (#): none Blood Pressure: 120/56 SaO2: 100 Pulse Rate: 78 Respiratory Rate: 16 Temperature: 98.8 F Patient is:: Drowsy and Stable Stable to PACU at:: 09:10
--- NOTE | 2023-04-03 09:45 | SUR.OPER ---
[id number], PH-7.38. MD AT BEDSIDE AND MADE AWARE OF RESULTS.
--- NOTE | 2023-04-03 09:55 | SUR.PHASEI ---
0939- detailed report called to wood fish in ob 0941- pt left in stable condition with wood fish in pt room. All vss, dressings cdi, fundus placement confirmed.
--- NOTE | 2023-04-03 09:59 | P.OP_ITS ---
Date of procedure: 04/03/23 Pre-op Diagnosis:: 1. 37 weeks gestational age 2. Mild Preeclampsia 3. Previous C Section 4. Undesired Fertility Post-op Diagnosis:: Same Procedure performed:: 1. Low Transverse C Section 2. Bilateral Tubal Ligation Surgeon:: Onelia Polanco MD [employer]):: Herber Fernández MD STAINED GLASS GLAZIER:: Ziggyjustyna Ambrose Anesthesia: spinal Estimated blood loss (mL): 500 Operative findings:: Vigorous, live born female infant in vertex presentation with single nuchal cord Mild vesico-uterine adhesions Grossly normal appearing uterus, ovaries and fallopian tubes Operative note:: The patient was taken to the OR and spinal was administered without difficulty. She was prepped and draped in normal sterile fashion. A pfannenstiel skin incision was made with the scalpel through the previous scar and carried down to the fascia with sharp dissection. The fascia was incised in the midline and sharply dissected off the rectus muscles. The muscles were in the midline and the peritoneum was entered sharply and extended bluntly. The Torres-O self retaining retractor was placed in the abdomen and a bladder flap was created. There were mild adhesions extending from the bladder to the lower uterine segment from a previous c section, but this dissection was completed without complication or injury to the bladder. The uterus was incised in the lower uterine segment in a transverse fashion and extended bluntly. Amniotomy was performed and clear fluid noted. The was delivered in controlled fashion, without complication or shoulder dystocia. A single nuchal cord was reduced after the head was delivered. The infant was vigorous at and handed to awaiting sole layer hand and nursing staff for evaluation after routine delayed cord clamping. Cord blood was collected and a cord segment was preserved. The placenta was manually extracted and noted to be intact; it was sent for pathology because of the preeclampsia diagnosis. The uterus was repaired with 0-vicryl in a running/locked fashion. A small defect was made in the broad ligament on the patient's left with cautery and 0- chromic suture was passed through the defect. The fallopian tube was ligated twice, with the intervening tube segment excised using scissors. This method of tubal ligation (BPS) was repeated on the right fallopian tube and both tubal segments were sent for pathology. The Torres retractor was removed from the abdomen and Amy was placed over the lower uterine segment in the area of adhesion dissection as an additional means of hemostasis. The peritoneum was closed with 2-0 vicryl in a running fashion. The fascia was closed with #1 vicryl in a running fashion. The subcutaneous fat was closed with 2-0 vicryl in an interrupted fashion. The skin was closed with bee. The patient tolerated the procedure well. EBL 500cc. Sponge, lap, needle and instrument counts were correct x 2. TAP block was placed by anesthesia following the procedure. She was taken to PACU awake and in stable condition. Condition: stable Disposition: PACU Specimens:: 1. Placenta 2. Bilateral fallopian tube segments Complications:: None
--- NOTE | 2023-04-03 10:33 | EXP.HP ---
History of Present Illness *Admission Date: 04/03/23 *Reason for visit:: delivery *History of present illness: 32 year old with SHIRA 04/23/23 care at [facility]-- Dr. Polanco Dating by LMP = 10 wk ultrasound complicated by labor at 32 weeks She was successfully tocolyzed and received prophylactic steroids Subsequent to this episode, she was managed with PO procardia for contractions but later diagnosed with preeclampsia testing has been reassuring and blood pressure has been stable She also had complaints of chest pain and shortness of breath, with a prior cardiac issue after covid infection Cardiology consult was obtained, with normal echo Event monitor showed SR PAC/PVC, non-sustained Final cardiology recommendation was for a 6 week follow up in their office, but no cardiac intervention needed at this time She has a history of a previous CS and is scheduled for repeat CS today She desires permanent sterilization and declines reversible methods of contraception [facility] Disclaimer: The information contained in this section may have been updated after the patient was seen, as this information can be updated by other users. Medical History (Updated 04/03/23 @ 11:03 by Onelia Polanco MD) Dyspnea History of gastroesophageal reflux (GERD) History of placenta abruption Migraine contractions Surgical History History of section Family History Other Stroke Social History (Updated 04/03/23 @ 07:24 by Ziggy Ambrose CRNA) Smoking Status: Current every day smoker tobacco type: cigarettes packs per day: 1 years smoked: 15 alcohol intake: never substance use type: denies use current occupational status: employed Travel in the last 8 weeks: None do you feel safe at home: Yes victim of physical abuse: No victim of emotional abuse: No victim of sexual abuse: No Review of Systems Constitutional Constitutional: Reports system reviewed and no additional complaints, except as documented and Denies headache(s) ENT Ears, Nose, Mouth, and Throat: Denies headache(s) *Cardiovascular Cardiovascular: Reports chest pain (intermittent) and Reports dyspnea on exertion (intermittent) *Respiratory Respiratory: Reports dyspnea on exertion (intermittent) *Genitourinary Genitourinary: Denies abnormal vaginal bleeding *Neurologic Neurologic: Denies headache(s) and Denies other visual disturbances Meds Home Medications and Allergies Home Medications Medication Instructions Recorded Confirmed Type vits no.124-ferrous fum 1 tab PO DAILY Supplement 03/25/23 04/03/23 History 27 mg iron-folic acid 800 mcg tablet ( Vitamin) pantoprazole 40 mg granules 40 mg PO DAILY Acid reflux 03/28/23 04/03/23 History delayed-release for susp in packet (Protonix) azithromycin 250 mg tablet 250 mg PO DAILY Infection 04/03/23 04/03/23 History labetalol 100 mg tablet 100 mg PO BID Hypertension 04/03/23 04/03/23 History nifedipine 60 mg tablet,extended 60 mg PO DAILY Contractions 04/03/23 04/03/23 History release 24 hr New Prescriptions to Start Prescriptions: Allergies Allergy/AdvReac Type Severity Reaction Status Date / Time No Known Allergies Allergy Verified 04/01/23 11:15 Exam Data for Last 24 hours Vital signs and Labs for Last 24 Hours: Temp Pulse Resp BP Pulse Ox 98.8 F 90 16 137/85 100 04/03/23 09:40 04/03/23 09:40 04/03/23 09:40 04/03/23 09:40 04/03/23 09:40 Laboratory Results - last 24 hr 04/03/23 05:12: Urine Color Yellow, Urine Appearance Clear, Urine pH 6.5, Ur Specific [place] 1.020, Urine Protein Trace, Urine Glucose (UA) Negative, Urine Ketones Negative, Urine Blood Negative, Urine Nitrate Negative, Urine Bilirubin Negative, Urine Urobilinogen 1.0, Ur Leukocyte Esterase
[2023-04-03 11:04] LABS: Microscopic,Cath URINE MICROSCOPIC (MICROSCOPIC)
[2023-04-03 11:22] LABS: Appearance,Urine/Cath CLEAR (Clear); Bilirubin,Cath Negative (Negative); Blood, Urine/Cath Negative (Negative); Color,Urine/Cath YELLOW (Yellow); Glucose,Urine/Cath (UA) Negative (Negative); Ketones,Urine/Cath Negative (Negative); Leukocyte Esterase,Cath Negative (Negative); Nitrate,Cath Negative (Negative); PH,Urine/Cath 6.5 (5.0-8.5); Protein,Urine/Cath Negative (Negative); Urobilinogen,Cath 0.2 EU/dl (0.2)
--- NOTE | 2023-04-03 11:29 | P.PNANES_ITS ---
[facility] Anesthesia Record Part II Anesthesia Record Part II Discharge Time: 09:40 Destination: Obstetric PACU nurse assessment reviewed?: Yes Patient Condition:: Good Anesthesia Complications:: None Swallowing reflex intact?: Yes Cyanosis?: No Blood Pressure: 137/85 Pulse Rate: 90 Temperature: 98.8 F Mental Status: Alert & Oriented Pain level:: 0 Nausea and/or vomitting:: None Intake, IV Amount: 0
[2023-04-03 11:38] LABS: Bacteria,Urine/Cath 1+ /lpf; WBC,Urine/Cath Occasional #/hpf (0-3)
[2023-04-04 00:13] VITALS: BP 113/68; PULSE 87; RESP 18; TEMP 36.5
[2023-04-04 03:09] VITALS: BP 120/73; PULSE 90; RESP 17
[2023-04-04 05:27] LABS: Basophils % 0.2 % (0.1-2.0); Eosinophils # 0.1 K/mm3 (0.0-0.4); Eosinophils % 0.7 % (0.1-12.0); Hematocrit 27.2 % (37.0-47.0); Lymphocytes # 1.5 K/mm3 (0.7-4.5); Lymphocytes % 13.5 % (10-50); Mean Corpuscular HGB Conc 32.8 g/dL (31.8-35.4); Mean Corpuscular Hemoglobin 28.1 pg (27.0-31.2); Mean Corpuscular Volume 85.6 fl (81-99); Mean Platelet Volume 9.9 fl (7.4-10.4); Monocytes # 0.5 K/mm3 (0.1-1.0); Monocytes % 4.6 % (1.7-9.3); Neutrophils # 9.1 K/mm3 (1.8-7.8); Platelet Count 217 K/mm3 (142-424); Red Blood Count 3.18 M/mm3 (4.20-5.40); Red Cell Distribution Width 13.6 % (11.5-17.5); White Blood Count 11.3 K/mm3 (4.8-10.8)
[2023-04-04 05:38] LABS: Hemoglobin 8.9 g/dL (12.2-16.2)
[2023-04-04 08:15] VITALS: BP 110/58; PULSE 88; RESP 18; TEMP 36.8; O2SAT 97
--- NOTE | 2023-04-04 11:30 | EXP.ACUTE.PN ---
Subjective *Date: 04/04/23 *Time: 11:30 Interval history: She is 1 day postoperatively from a section and tubal ligation. She is doing well. Her pain is well controlled. She had a T AP block. She is breast-feeding. Her blood pressure is doing well. Medical Exam Vital signs and Labs for Last 24 Hours: Vital Signs Temp Pulse Resp BP Pulse Ox 04/04/23 08:15 98.2 F 88 18 110/58 L 97 04/04/23 03:09 90 17 120/73 04/04/23 00:13 97.7 F 87 18 113/68 04/03/23 20:13 98.4 F 78 18 125/68 04/03/23 16:00 98.1 F 82 20 123/77 99 04/03/23 13:40 98.2 F 85 18 126/57 L 98 04/03/23 13:30 81 130/61 99 04/03/23 12:03 98.1 F 85 18 143/74 H 97 04/03/23 11:43 75 155/89 H 99 04/03/23 11:32 83 185/108 H 98 Intake and Output 04/03/23 04/04/23 04/04/23 19:59 03:59 11:59 Output Total 0 / 0 Balance 0 / 0 Output: Output, Urine Amount 0 / 0 Other: Number of Unmeasured Voids 1 Laboratory Results - last 24 hr 04/03/23 07:55: Urine Color Yellow, Urine Appearance Clear, Urine pH 6.5, Ur Specific [place] 1.020, Urine Protein Negative, Urine Glucose (UA) Negative, Urine Ketones Negative, Urine Blood Negative, Urine Nitrate Negative, Urine Bilirubin Negative, Urine Urobilinogen 0.2, Ur Leukocyte Esterase Negative, Urine RBC None, Urine WBC Occasional, Ur Squamous Epith Cells 5-10, Urine Bacteria 1+ 04/04/23 05:19: WBC 11.3 H, RBC 3.18 L, Hgb 8.9 L D, Hct 27.2 L, MCV 85.6, MCH 28.1, MCHC 32.8, RDW 13.6, Plt Count 217, MPV 9.9, Neut % (Auto) 81.0 H, Lymph % (Auto) 13.5, [place] % (Auto) 4.6, Eos % (Auto) 0.7, Baso % (Auto) 0.2, Neut # (Auto) 9.1 H, Lymph # (Auto) 1.5, Free[place] # (Auto) 0.5, Eos # (Auto) 0.1, Baso # (Auto) 0.0 I & O for Labs for Last 24 Hours: Intake & Output 04/01/23 04/02/23 04/03/23 04/04/23 11:59 11:59 11:59 11:59 Intake Total 1200 / 1200 Output Total 0 / 0 Balance 1200 / 1200 0 / 0 Weight 231 lb Head: Present atraumatic ENT: Present normal exam Neck: Present normal inspection Respiratory: Present normal respiratory effort; Absent accessory muscle use GI: Present soft; Absent distention or tenderness Rectal (female): Present deferred (female): Present deferred Assessment and Plan *Assessment and plan (1) Pre-eclampsia during in third trimester, antepartum: Status: Acute Category: Medical Code(s): O14.93 - Unspecified pre-eclampsia, third trimester (2) History of gastroesophageal reflux (GERD): Status: Acute Category: Medical Code(s): Z87.19 - Personal history of other diseases of the digestive system (3) Obesity affecting : Status: Acute Category: Medical Code(s): O99.210 - Obesity complicating , unspecified trimester (4) delivery due to previous difficult delivery, delivered, current hospitalization: Status: Acute Category: Medical Code(s): O82 - Encounter for delivery without indication; Z87.59 - Personal history of other complications of , childbirth and the puerperium (5) Sterilization: Status: Acute Category: Medical Code(s): Z30.2 - Encounter for sterilization (6) Anemia, : Status: Acute Category: Medical Code(s): O90.81 - Anemia of the puerperium Plan She continues to do very well today. Her pain is reasonably well controlled after her section. We will plan to send her home tomorrow as long as she is doing well.
[2023-04-05 08:42] VITALS: BP 137/69; PULSE 90; RESP 18; TEMP 36.8; O2SAT 97
--- NOTE | 2023-04-05 08:42 | EXP.DC.SUM ---
General Admission date:: 04/03/23 Discharge date: 04/05/23 HPI HPI HPI: 32 year old with SHIRA 04/23/23 care at [facility]-- Dr. Polanco Dating by LMP = 10 wk ultrasound complicated by labor at 32 weeks She was successfully tocolyzed and received prophylactic steroids Subsequent to this episode, she was managed with PO procardia for contractions but later diagnosed with preeclampsia testing has been reassuring and blood pressure has been stable She also had complaints of chest pain and shortness of breath, with a prior cardiac issue after covid infection Cardiology consult was obtained, with normal echo Event monitor showed SR PAC/PVC, non-sustained Final cardiology recommendation was for a 6 week follow up in their office, but no cardiac intervention needed at this time She has a history of a previous CS and is scheduled for repeat CS today She desires permanent sterilization and declines reversible methods of contraception Hospital Course Hospital Course Hospital Course: On April 03, 2023 she underwent a repeat lower segment transverse section and bilateral tubal ligation. Baby was a liveborn female child weighing 7 pounds 2 ounces and was 19-1/2 inches long. She had Apgars of 7 at 1 minute and 8 at 5 minutes. She has done well and has remained afebrile with her hospitalization. She is eating and drinking and ambulating. She is breast-feeding and bottlefeeding. Her pain is well controlled. Her blood pressure is stable. She has O+ blood, she is rubella immune and was group B streptococcus negative. She is discharged home to follow-up with Dr. Polanco in approximately 2 to 3 weeks time. She will continue with her vitamins and iron. She will continue with her labetalol. She was given a prescription for Percocet 5/325 number 20 tablets. She was given instructions with respect to limiting her activity, driving and sexual activity. She was given instructions with respect to wound care. Her condition on discharge is stable and improved. Exam Data for Last 24 hours Vital signs and Labs for Last 24 Hours: Temp Pulse Resp BP Pulse Ox 98.2 F 88 18 110/58 L 97 04/04/23 08:15 04/04/23 08:15 04/04/23 08:15 04/04/23 08:15 04/04/23 08:15 I & O for Last 24 hours: Intake & Output 04/02/23 04/03/23 04/04/23 04/05/23 11:59 11:59 11:59 11:59 Intake Total 1200 / 1200 Output Total 300 / 300 0 / 0 Balance 1200 / 1200 -300 / -300 0 / 0 Weight 231 lb Constitutional Constitutional: no acute distress *Routine HEENT Exam Head: Present normocephalic *Routine Respiratory Exam Respiratory: Present normal respiratory effort DS: Diagnosis Discharge Diagnosis (1) Pre-eclampsia during in third trimester, antepartum: Status: Acute Code(s): O14.93 - Unspecified pre-eclampsia, third trimester (2) History of gastroesophageal reflux (GERD): Status: Acute Code(s): Z87.19 - Personal history of other diseases of the digestive system (3) Obesity affecting : Status: Acute Code(s): O99.210 - Obesity complicating , unspecified trimester (4) delivery due to previous difficult delivery, delivered, current hospitalization: Status: Acute Code(s): O82 - Encounter for delivery without indication; Z87.59 - Personal history of other complications of , childbirth and the puerperium (5) Sterilization: Status: Acute Code(s): Z30.2 - Encounter for sterilization (6) Anemia, : Status: Acute Code(s): O90.81 - Anemia of the puerperium Meds Home Medications and Allergies Home Medications Medication Instructions Recorded Confirmed Type vits no.124-ferrous fum 1 tab PO DAILY Supplement 03/25/23 04/03/23 History 27 mg iron-folic acid 800 mcg tablet ( Vitamin) pantoprazole 40 mg granules
--- NOTE | 2023-04-14 15:33 | PC.NURSE ---
Pt here for staple removal, bee removed. incision approximated, no redness or swelling noted. cleaned with 1/2 NS and 1/2 hydrogen peroxide.
== END 2023-04-05 10:55 | disposition home or self-care (01) | DRG 785 ==
PROVIDERS: Admitting Provider Obstetrics & Gynecology; PCP Physician Assistant; Visit Provider Obstetrics & Gynecology
PROC: 0UL70ZZ Occlusion of Bilateral Fallopian Tubes, Open Approach (ICD-10-PCS; CPT 59514; principal; 2023-04-03 07:30)
DX: O14.04 Mild to moderate pre-eclampsia, complicating childbirth (principal); Z37.0 Single live birth; Z30.2 Encounter for sterilization; O69.81X0 Labor and delivery complicated by cord around neck, without compression, not applicable or unspecified; O99.214 Obesity complicating childbirth; Z23 Encounter for immunization; O34.211 Maternal care for low transverse scar from previous cesarean delivery; N85.8 Other specified noninflammatory disorders of uterus
CPT/HCPCS: 59514; 58611; 36415; 59025; 80053; 80305; 81001; 82800; 85025; 86850; 87636; 94761; 96374; C9290; C9803; G0283; J2405; U0003; U0005